=== PATIENT | male | born 1965 | race American Indian/Alaskan Native ===

== ENCOUNTER 2018-02-25 21:05 | Emergency (ER) | payer OTHER ==
[2018-02-25 21:31] VITALS: O2SAT 100
[2018-02-25] MEDS ORDERED: Aspirin 325 mg EC Tablets PO STA (22:12)
--- NOTE | 2018-02-25 22:12 | C.PDOC ---
History Of Present Illness Patient presents to ED complaining of a worsening intermittent dull aching epigastric and chest pain that has been occurring for the past month. Patient reports the discomfort goes from his stomach to his chest. His PCP prescribed him antacid medication that has given him partial relief, but the pain is still occasionally interfering with his daily routine. Denies fever, chills, change in bowel movement, nausea, vomiting. Time Seen by Provider: 02/25/18 22:11 Chief Complaint (Nursing): Chest Pain History Per: Patient History/Exam Limitations: no limitations Onset/Duration Of Symptoms: Days Current Symptoms Are (Timing): Still Present Severity: Mild Pain Scale Rating Of: 4 Quality: Dull, Aching Associated Symptoms: denies: Nausea Modifying Factors: None Exacerbating Factors: None Alleviating Factors: None Recent travel outside of the [place]: No Additional History Per: Patient Past Medical History Reviewed: Historical Data, Nursing Documentation, Vital Signs Vital Signs: Last Vital Signs Temp 97.9 F 02/25/18 21:29 Pulse 71 02/25/18 21:29 Resp 16 02/25/18 21:29 BP 133/83 02/25/18 21:29 Pulse Ox 100 02/25/18 22:37 - Medical History PMH: Gastritis Surgical History: No Surg Hx Family History: States: No Known Family Hx - Social History Hx Alcohol Use: No Hx Substance Use: No Review Of Systems Constitutional: Negative for: Fever, Chills Cardiovascular: Positive for: Chest Pain. Negative for: Palpitations Respiratory: Negative for: Shortness of Breath, Wheezing Gastrointestinal: Positive for: Abdominal Pain (mid epigastric). Negative for: Nausea, Vomiting Musculoskeletal: Negative for: Back Pain Skin: Negative for: Rash Neurological: Negative for: Weakness, Numbness Psych: Negative for: Anxiety Physical Exam - Physical Exam Appears: Non-toxic, No Acute Distress, Other (Speaking in full sentences.) Skin: Warm, Dry Head: Normacephalic Eye(s): bilateral: Normal Inspection Oral Mucosa: Moist Teeth: Other (poor dentition) Neck: Trachea Midline, Supple Chest: Symmetrical Cardiovascular: Rhythm Regular Respiratory: No Rales, No Rhonchi, No Wheezing Gastrointestinal/Abdominal: Bowel Sounds (tympanic to percussion), Tenderness, No Distention, No Guarding, No Rebound (mild mid epigastric) Back: Normal Inspection Extremity: Normal ROM Extremity: Bilateral: Atraumatic Neurological/Psych: Oriented x3 Gait: Steady ED Course And Treatment - Laboratory Results Result Diagrams: 02/25/18 22:20 02/25/18 22:20 ECG: Interpreted By Me, Viewed By Me ECG Rhythm: Sinus Rhythm (61), Nonspecific Changes O2 Sat by Pulse Oximetry: 100 (RA) Pulse Ox Interpretation: Normal Progress Note: EKG, chest X-ray, aspirin 325 PO, labs, urinalysis ordered. Medical Decision Making Medical Decision Making: I considered the following diagnoses: acute coronary syndrome, pulmonary embolism, lower respiratory infection, aortic dissection/aneurysm, pneumothorax , pericarditis, esophagitis/GERD, zoster and esophageal rupture but found them to be unlikely based on the history, physical exam, and diagnostics. My conclusions regarding the unlikely diagnoses were based on: the absence of significant EKG abnormalities, the lack of suggestive x-ray findings, the absence of significant abnormalities on cardiac monitoring, the absence of asymmetric pulses. Pt feels much better, cp free and wants to go home. Spoke at length about the need for follow up, smoking cessation and to return if symptoms recur Upon provider reevaluation patient is feeling better, is medically stable, and requires no further treatment in the ED at this time. Patient will be discharged home with Rx for protonix . Counseling was provided and all questions were answered regarding diagnosis and need for follow up with the referred clinic. There is agreement to discharge plan. Return if symptoms persist or worsen. Disposition Counseled Patient/Family Regarding: Studies Performed, Diagnosis, Need For Followup, Rx Given, Smoking Cessation - Disposition Referrals: [facility] [Outside] [facility] [Outside] Disposition: HOME/ ROUTINE Disposition Time: 22:11 Condition: FAIR Additional Instructions: Please return if symptoms recur Prescriptions: Pantoprazole Sodium [Protonix] 40 mg PO DAILY #15 ect Instructions: Acid Reflux (Gastroesophageal Reflux Disease) in Adults, Gastritis (DC), Ulcer and Gastritis Diet, Chest Pain (DC) Forms: [facility] (Marshallese) - Clinical Impression Clinical Impression: Chest pain, GERD (gastroesophageal reflux disease), Gastritis - Scribe Statement The provider has reviewed the documentation as recorded by the Terrance Garcia Patrick Provider Attestation: All medical record entries made by the Terrance were at my direction and personally dictated by me. I have reviewed the chart and agree that the record accurately reflects my personal performance of the history, physical exam, medical decision making, and the department course for this patient. I have also personally directed, reviewed, and agree with the discharge instructions and disposition.
[2018-02-25 22:23] LABS: BASO % 0.4 % (0.0-2.0); EOS # 0.1 K/uL (0.0-0.7); EOS % 1.4 % (0.0-4.0); HEMOGLOBIN 13.1 g/dL (12.0-18.0); LYMPH # 2.6 K/uL (1.0-4.3); LYMPH % 49.4 % (20.0-40.0); MEAN CELL VOLUME 93.4 fL (80.0-94.0); MEAN CORPUSCULAR HEMOGLOBIN 30.9 pg (27.0-31.0); MEAN PLATELET VOLUME 7.8 fL (7.2-11.7); MONO # 0.5 K/uL (0.0-0.8); MONO % 8.6 % (0.0-10.0); NEUT # 2.1 K/uL (1.8-7.0); NEUT % 40.2 % (50.0-75.0); NRBC % 0.2 % (0.0-2.0); RBC 4.23 Mil/uL (4.40-5.90); RED CELL DISTRIBUTION WIDTH 13.3 % (11.5-14.5); WHITE BLOOD COUNT 5.3 K/uL (4.8-10.8)
[2018-02-25] MEDS ORDERED: Aspirin 325 mg EC Tablets PO ONE (22:28)
[2018-02-25 22:40] LABS: ALB/GLOB RATIO 1.4 (1.0-2.1); ALBUMIN 4.4 g/dL (3.5-5.0); ALT/SGPT 32 U/L (21-72); AST/SGOT 26 U/L (17-59); BLOOD UREA NITROGEN 18 mg/dL (9-20); CALCIUM 9.5 mg/dl (8.6-10.4); GFR NON-AFRICAN AMERICAN > 60
[2018-02-25 22:53] LABS: INR 1.2; PROTHROMBIN TIME 13.3 SECONDS (9.7-12.2)
[2018-02-25 22:58] LABS: SQUAMOUS EPITHIAL 1 /hpf (0-5); URINE BACTERIA RARE (<OCC); URINE BILIRUBIN NEGATIVE (NEGATIVE); URINE BLOOD 2+ (NEGATIVE); URINE CLARITY Clear (Clear); URINE COLOR Yellow (YELLOW); URINE GLUCOSE (UA) NORMAL (Normal); URINE LEUKOCYTE ESTERASE NEG Leu/uL (Negative); URINE PROTEIN NEGATIVE (NEGATIVE)
[2018-02-26 00:03] VITALS: BP 121/75; PULSE 77; RESP 20; TEMP 98
--- NOTE | 2018-02-26 07:28 | RAD ---
HISTORY: cp COMPARISON: None TECHNIQUE: Chest PA and lateral FINDINGS: LUNGS: No focal consolidation is seen. PLEURA: No pleural effusion is identified. CARDIOVASCULAR: Heart size is within normal limits. OSSEOUS STRUCTURES: No acute fracture identified. VISUALIZED UPPER ABDOMEN: Unremarkable. OTHER FINDINGS: None. IMPRESSION: No acute cardiopulmonary process seen.
--- NOTE | 2018-02-26 14:55 | CARD ---
APPROVED REPORT Date of service: 02/25/2018 EKG Measurement Heart [id number] <Conclusion> Normal sinus rhythm Normal ECG
== END 2018-02-26 00:02 | disposition home or self-care (01) ==
LOC: C.ER 21:05
DX: R07.9 Chest pain, unspecified (principal); K21.9 Gastro-esophageal reflux disease without esophagitis; K29.70 Gastritis, unspecified, without bleeding

== ENCOUNTER 2018-09-30 17:19 | Inpatient (IN) | payer OTHER ==
[2018-09-30 18:03] LABS: BASO % 0.4 % (0.0-2.0); EOS # 0.1 K/uL (0.0-0.7); EOS % 1.1 % (0.0-4.0); LYMPH # 2.3 K/uL (1.0-4.3); LYMPH % 29.7 % (20.0-40.0); MEAN CELL VOLUME 94.1 fL (80.0-94.0); MEAN CORPUSCULAR HGB CONC 31.9 g/dL (33.0-37.0); MEAN PLATELET VOLUME 8.2 fL (7.2-11.7); MONO # 0.9 K/uL (0.0-0.8); MONO % 11.7 % (0.0-10.0); NEUT # 4.4 K/uL (1.8-7.0); NEUT % 57.1 % (50.0-75.0); RBC 4.67 Mil/uL (4.40-5.90); RED CELL DISTRIBUTION WIDTH 13.7 % (11.5-14.5); WHITE BLOOD COUNT 7.7 K/uL (4.8-10.8)
[2018-09-30] MEDS ORDERED: Sodium Chloride 0.9% 1,000 ML IV STA (18:04)
[2018-09-30] MEDS ORDERED: Sodium Chloride 0.9% 1,000 ML ONE ×2 (18:14→23:16)
[2018-09-30 18:15] LABS: ALB/GLOB RATIO 1.3 (1.0-2.1); ALBUMIN 4.3 g/dL (3.5-5.0); ALT/SGPT 18 U/L (21-72); AST/SGOT 22 U/L (17-59); BLOOD UREA NITROGEN 22 mg/dL (9-20); CALCIUM 9.4 mg/dl (8.6-10.4); GFR NON-AFRICAN AMERICAN > 60; LIPASE 93 U/L (23-300)
--- NOTE | 2018-09-30 18:21 | C.PDOC ---
History Of Present Illness 53 y/o male presents to the ED complaining of left-sided abdominal pain and left flank pain on and off since 4 days ago. Associated with nausea and multiple episodes of vomiting. Patients significant other thought he had tactile fever, no documented temp. No diarrhea, constipation, or changes in urination. No history of similar pain in the past. States he was seen here before for gastritis, and was given an unknown medication. Patient notes he took that same medication this time, with some improvement. On arrival to the ED, patient denies having any pain at present and no longer feels nauseous. Last episode of vomiting was just [employer], and the vomitus was brown-mary grace and non-bloody. He denies any chest pain, SOB, or dizziness. <Ez Meneses - Last Filed: 09/30/18 19:05> History Per: Patient History/Exam Limitations: no limitations Onset/Duration Of Symptoms: Intermittent Episodes Current Symptoms Are (Timing): Gone Associated Symptoms: Nausea, Vomiting <Ez Meneses - Last Filed: 09/30/18 19:05> <Zoila Lujan - Last Filed: 09/30/18 22:39> Time Seen by Provider: 09/30/18 17:54 Chief Complaint (Nursing): Abdominal Pain Past Medical History Reviewed: Historical Data, Nursing Documentation, Vital Signs Vital Signs: Last Vital Signs Temp 98.8 F 09/30/18 17:38 Pulse 88 09/30/18 17:38 Resp 20 09/30/18 17:38 BP 118/78 09/30/18 17:38 Pulse Ox 98 09/30/18 17:38 - Medical History PMH: Gastritis Surgical History: No Surg Hx Family History: States: No Known Family Hx - Social History Hx Tobacco Use: Yes Hx Alcohol Use: No Hx Substance Use: No - Immunization History Hx Tetanus Toxoid Vaccination: No Hx Influenza Vaccination: No Hx Pneumococcal Vaccination: No <Ez Meneses - Last Filed: 09/30/18 19:05> Vital Signs: Last Vital Signs Temp 99.0 F 09/30/18 20:56 Pulse 66 09/30/18 20:56 Resp 20 09/30/18 17:38 BP 156/86 H 09/30/18 20:56 Pulse Ox 98 09/30/18 20:56 <Zoila Lujan - Last Filed: 09/30/18 22:39> Review Of Systems Constitutional: Positive for: Fever (tactile). Negative for: Sweats, Weakness Cardiovascular: Negative for: Chest Pain Respiratory: Negative for: Shortness of Breath Gastrointestinal: Positive for: Nausea (none at present), Vomiting, Abdominal Pain (none at present). Negative for: Diarrhea, Constipation Musculoskeletal: Negative for: Back Pain Neurological: Negative for: Weakness, Dizziness <Ez Meneses - Last Filed: 09/30/18 19:05> Physical Exam - Physical Exam Appears: Well, Non-toxic, No Acute Distress Skin: Normal Color, Warm, No Rash Head: Normacephalic Eye(s): bilateral: Normal Inspection (no scleral icterus), PERRL, EOMI Oral Mucosa: Moist Neck: Normal ROM Chest: Symmetrical Cardiovascular: Rhythm Regular, No Murmur Respiratory: Normal Breath Sounds, No Accessory Muscle Use, Other (Normal inspiratory effort) Gastrointestinal/Abdominal: Bowel Sounds (normoactive), Soft, No Tenderness, No Distention Back: No CVA Tenderness, No Vertebral Tenderness Extremity: Bilateral: Atraumatic, Normal Color And Temperature, Normal ROM Neurological/Psych: Oriented x3, Normal Cranial Nerves Gait: Steady <Ez Meneses - Last Filed: 09/30/18 19:05> ED Course And Treatment - Laboratory Results Result Diagrams: 09/30/18 18:00 09/30/18 18:00 Lab Results: Total Bilirubin 0.7 mg/dL (0.2-1.3) 09/30/18 18:00 AST 22 U/L (17-59) 09/30/18 18:00 ALT 18 U/L (21-72) L D 09/30/18 18:00 Alkaline Phosphatase 65 U/L (38-126) 09/30/18 18:00 Total Protein 7.6 g/dL (6.3-8.3) 09/30/18 18:00 Albumin 4.3 g/dL (3.5-5.0) 09/30/18 18:00 Globulin 3.3 gm/dL (2.2-3.9) 09/30/18 18:00 Albumin/Globulin Ratio 1.3 (1.0-2.1) 09/30/18 18:00 Lipase 93 U/L (23-300) 09/30/18 18:00 O2 Sat by Pulse Oximetry: 98 (RA) Pulse Ox Interpretation: Normal <Ez Meneses - Last Filed: 09/30/18 19:05> - Laboratory Results Result Diagrams: 09/30/18 18:00 09/30/18 18:00 Lab Results: Total Bilirubin 0.7 mg/dL (0.2-1.3) 09/30/18 18:00 AST 22 U/L (17-59) 09/30/18 18:00 ALT 18 U/L (21-72) L D 09/30/18 18:00 Alkaline Phosphatase 65 U/L (38-126) 09/30/18 18:00 Total Protein 7.6 g/dL (6.3-8.3) 09/30/18 18:00 Albumin 4.3 g/dL (3.5-5.0) 09/30/18 18:00 Globulin 3.3 gm/dL (2.2-3.9) 09/30/18 18:00 Albumin/Globulin Ratio 1.3 (1.0-2.1) 09/30/18 18:00 Lipase 93 U/L (23-300) 09/30/18 18:00 Urine Color Yellow (YELLOW) 09/30/18 19:13 Urine Clarity Clear (Clear) 09/30/18 19:13 Urine pH 5.0 (5.0-8.0) 09/30/18 19:13 Ur Specific [place] 1.031 (1.003-1.030) H 09/30/18 19:13 Urine Protein 1+ mg/dL (NEGATIVE) H 09/30/18 19:13 Urine Glucose (UA) Normal mg/dL (Normal) 09/30/18 19:13 Urine Ketones Negative mg/dL (NEGATIVE) 09/30/18 19:13 Urine Blood 1+ (NEGATIVE) H 09/30/18 19:13 Urine Nitrate Negative (NEGATIVE) 09/30/18 19:13 Urine Bilirubin Negative (NEGATIVE) 09/30/18 19:13 Urine Urobilinogen 4.0 mg/dL (0.2-1.0) 09/30/18 19:13 Ur Leukocyte Esterase Neg Lindsey/uL (Negative) 09/30/18 19:13 Urine WBC (Auto) 2 /hpf (0-5) 09/30/18 19:13 Urine RBC (Auto) 9 /hpf (0-3) H 09/30/18 19:13 Ur Squamous Epith Cells 4 /hpf (0-5) 09/30/18 19:13 <Zoila Lujan - Last Filed: 09/30/18 22:39> Medical Decision Making Medical Decision Making: Impression: Abdominal pain, Vomiting Plan: - Basic blood work, lipase, and UA pending - Patient given NS IV fluids <ZairaEz - Last Filed: 09/30/18 19:05> Disposition <ZairaEz Last Filed: 09/30/18 19:05> Discussed With DrBrody: Ronnie Fraga Comment: accepted the pt on his service and took over the care at 10:37 PM Doctor Will See Patient In The: Hospital Counseled Patient/Family Regarding: Studies Performed, Diagnosis - Disposition Disposition Time: 19:00 <Zoila Lujan - Last Filed: 09/30/18 22:39> - Disposition Disposition: HOSPITALIZED Condition: FAIR Forms: [employer] (Guyanese) - Clinical Impression Clinical Impression: Renal colic on left side, Kidney stone on left side, Hydronephrosis concurrent with and due to calculi of kidney and ureter - PA / TRAVELING ENGINEER / Resident Statement MD/DO has reviewed & agrees with the documentation as recorded. - Scribe Statement The provider has reviewed the documentation as recorded by the Scribyg Garcia All medical record entries made by the Jorgeibyg were at my direction and personally dictated by me. I have reviewed the chart and agree that the record accurately reflects my personal performance of the history, physical exam, medical decision making, and the department course for this patient. I have also personally directed, reviewed, and agree with the discharge instructions and disposition. <ZairaEz - Last Filed: 09/30/18 19:05> Physician Patient Turnover Patient Signed Over To: Zoila Lujan Handoff Comments: check labs <ZairaEz Last Filed: 09/30/18 19:05> Decision To Admit <Bertjuan antonioEz Filed: 09/30/18 19:05> - Pt Status Changed To: Hospital Disposition Of: Inpatient - Admit Certification Admit to Inpatient:: After my assessment, the patient will require hospitalization for at least two midnights. This is because of the severity of symptoms shown, intensity of services needed, and/or the medical risk in this patient being treated as an outpatient. - InPatient: Physician Admission Certification:: After my assessment, the patient will require hospitalization for at least two midnights. This is because of the severity of symptoms shown, intensity of services needed, and/or the medical risk in this patient being treated as an outpatient. - . Bed Request Type: Regular Admitting Physician: Ronnie Fraga <Zoila Lujan - Last Filed: 09/30/18 22:39> - . Patient Diagnosis: Renal colic on left side, Kidney stone on left side, Hydronephrosis concurrent with and due to calculi of kidney and ureter
[2018-09-30 19:21] LABS: SQUAMOUS EPITHIAL 4 /hpf (0-5); URINE BILIRUBIN NEGATIVE (NEGATIVE); URINE BLOOD 1+ (NEGATIVE); URINE CLARITY Clear (Clear); URINE COLOR Yellow (YELLOW); URINE GLUCOSE (UA) NORMAL (Normal); URINE LEUKOCYTE ESTERASE NEG Leu/uL (Negative); URINE PROTEIN 1+ mg/dL (NEGATIVE)
[2018-09-30] MEDS ORDERED: Iodixanol 320 MG/ML 100 ML BOTTLE IV ONE (20:03)
[2018-09-30] MEDS ORDERED: Sodium Chloride 0.9% 2,000 ML IV ONE (22:36)
[2018-10-01] MEDS: Sodium Chloride 0.9% 1,000 ML IV SCH ×3 (00:55→20:00)
--- NOTE | 2018-10-01 09:35 | CT ---
Date of service: 09/30/2018 PROCEDURE: CT Abdomen and Pelvis with intravenous contrast HISTORY: Abdominal pain COMPARISON: None. TECHNIQUE: Multiple contiguous axial images were performed through the abdomen and pelvis with the use of intravenous contrast. Subsequently, sagittal and coronal reformatted images were obtained. This CT exam was performed using one or more of the following dose reduction techniques: Automated exposure control, adjustment of the mA and/or kV according to patient size, and/or use of iterative reconstruction technique. Radiation dose: Total exam DLP = 554.32 mGy-cm. This CT exam was performed using one or more of the following dose reduction techniques: Automated exposure control, adjustment of the mA and/or kV according to patient size, and/or use of iterative reconstruction technique. FINDINGS: LOWER THORAX: 2 millimeter nodular density within the medial right middle lobe. Atelectasis at the left lung base. LIVER: 1.4 centimeter lobulated low-attenuation lesion seen within the right hepatic lobe demonstrating a Hounsfield unit attenuation of 20, indeterminate. Additional lobulated low-attenuation lesion seen within the caudate lobe measuring 2.2 centimeters demonstrating a Hounsfield unit attenuation of 18, indeterminate. Multiple scattered sub centimeter hypoattenuated foci throughout the liver too small to adequately characterize. Mild intrahepatic biliary the ductal dilatation. GALLBLADDER AND BILE DUCTS: Unremarkable. PANCREAS: Mild prominence of the main pancreatic duct measuring up to 3 millimeters. SPLEEN: Unremarkable. ADRENALS: Unremarkable. No mass. KIDNEYS AND URETERS: Right kidney: Multiple prominent calculi for example in the midpole measuring 9 millimeters and in the lower pole measuring up to 8.2 and 8 millimeters. 5 millimeter hypodensity in the upper pole of the right kidney, too small to adequately characterize. No gross right renal hydronephrosis. Left Kidney: Moderate left hydroureteronephrosis with an obstructing calculus in the mid left ureter measuring 6 millimeters. VASCULATURE: Unremarkable. No aortic aneurysm. Aortic atherosclerotic calcification or mural plaque present. BOWEL: Gastric distension with mild thickening of the distal esophagus. Redundant and somewhat underdistended colon limits evaluation. Correlation with colonoscopy may be helpful if clinically indicated. Fecal retention in the colon. APPENDIX: Unremarkable. Normal appendix. PERITONEUM: Unremarkable. No free fluid. No free air. LYMPH NODES: Few shotty para-aortic and inguinal lymph nodes. Few shotty mesenteric lymph nodes. BLADDER: Thick-walled urinary bladder. REPRODUCTIVE: Unremarkable. Bilateral scrotal hydroceles. BONES: Degenerative changes in the spine with retrolisthesis of L5 on S1 and prominent endplate sclerotic changes noted at the L5-S1 level. OTHER FINDINGS: None. IMPRESSION: Moderate left hydroureteronephrosis with an obstructing calculus in the mid left ureter measuring 6 millimeters. Multiple nonobstructive right renal calculi. Retrolisthesis of L5 on S1 with degenerative changes as described above in the spine. Thick-walled urinary bladder which may represent an underlying cystitis. Clinical correlation. Gastric distention with mild thickening of the distal esophagus. Clinical correlation. Multiple low-attenuation lesions throughout the liver as described above. Correlation with multiphasic contrast enhanced CT or MR may be helpful for further evaluation if clinically indicated. 2 millimeter nodule within the right middle lobe of the lung. Redundant and somewhat underdistended colon limits evaluation. Correlation with colonoscopy may be helpful if clinically indicated. A preliminary report was generated at 10:14 p.m. on 09/30/[address] Ez Mary from [employer].
[2018-10-01] MEDS: Enoxaparin 40 mg Syringe SC SCH (09:42)
[2018-10-01] MEDS: Potassium Chloride 20 mEq ER Tab PO ONE ×2 (10:42→11:21)
[2018-10-01] MEDS ORDERED: Potassium Chloride 20 mEq ER Tab PO ONE (11:15)
[2018-10-01 11:38] LABS: BLOOD UREA NITROGEN 19 mg/dL (9-20); CALCIUM 8.3 mg/dl (8.6-10.4); GFR NON-AFRICAN AMERICAN 58
--- NOTE | 2018-10-01 22:30 | CP.PCM.HP ---
Present on Admission - Present on Admission Any Indicators Present on Admission: No Past Patient History - Past Medical History & Family History Past Medical History?: Yes - Past Social History Smoking Status: Former Smoker - MUSCULOSKELETAL/RHEUMATOLOGICAL Hx Falls: No - GASTROINTESTINAL Hx Gastritis: Yes - PSYCHIATRIC Hx Substance Use: No - SURGICAL HISTORY Hx Surgeries: No Meds Allergies/Adverse Reactions: Allergies Allergy/AdvReac Type Severity Reaction Status Date / Time No Known Allergies Allergy Verified 09/30/18 17:40 Results - Vital Signs Recent Vital Signs: Last Vital Signs Temp 97.8 F 10/01/18 16:00 Pulse 63 10/01/18 16:00 Resp 20 10/01/18 16:00 BP 120/78 10/01/18 16:00 Pulse Ox 99 10/01/18 16:00 - Labs Result Diagrams: 09/30/18 18:00 10/01/18 11:13 Labs: Laboratory Results - last 24 hr 10/01/18 11:13 Sodium 136 Potassium 3.4 L Chloride 101 Carbon Dioxide 33 H Anion Gap 5 L BUN 19 Creatinine 1.3 Est GFR ( Amer) > 60 Est GFR (Non-Af Amer) 58 Random Glucose 139 H D Calcium 8.3 L
[2018-10-02] MEDS: Sodium Chloride 0.9% 1,000 ML IV SCH ×3 (03:11→09:20)
--- NOTE | 2018-10-02 06:28 | HP ---
CHIEF COMPLAINT: Left upper quadrant abdominal pain radiating to the left flank. HISTORY OF PRESENT ILLNESS: This is a 53-year-old male with history of smoking and social alcohol user who does not have any significant past medical history. For the last four days, he is having left upper quadrant abdominal pain radiating to the left flank and left groin area, which is colicky in nature, sharp, severe associated with nausea and multiple episodes of vomiting. He also feels feverish. He has no dysuria, hematuria, pyuria. He denies any diarrhea, constipation. He denies any history of change in urinary stream. He denies any urgency, hesitancy, nocturia. The patient has a history of similar pain in the past and the patient was told that he has gastritis and he was given some medication and he did well with medication. The patient denies any pain, but when he arrived in the ER his pain was intense 9/10. He denies any history of joint pain, hip pain. He denied any tingling, numbness, paresthesias of the feet. He denies any sneezing, itchy eyes, itchy nose. He denies any polyuria, polydipsia, polyphagia. PAST MEDICAL HISTORY: Nothing significant. PAST SURGICAL HISTORY: He smokes. He drinks. FAMILY HISTORY: Negative for kidney stone. PHYSICAL EXAMINATION: GENERAL: An adult middle-aged male in no distress. VITAL SIGNS: Blood pressure 120/78, pulse 63, respiratory rate 20, temperature 97.8. SKIN: No rashes. No bruises. No purpura. No petechiae. No ecchymosis. HEENT: Atraumatic and normocephalic. Negative pallor. Negative jaundice. Extraocular movements are intact. NECK: Supple. No JVD. No lymph node. No thyromegaly. No carotic bruit. CHEST: Chest wall, bilateral symmetrical expansion. LUNGS: Clear. No rales. No rhonchi. CARDIOVASCULAR SYSTEM: S1 and S2. Regular. No heave, no thrill. CENTRAL NERVOUS SYSTEM: Awake, alert, and oriented x3. Cranial nerves II through XII are normal. Power 5/5 x4. Plantars are downgoing. ASSESSMENT: 1. Renal colic, rule out gastritis. 2. Dehydration. PLAN: Admit. Detailed orders are written. Seen and examined. Ronnie Fraga MD [facility] # [id number]
[2018-10-02 07:14] LABS: BASO % 0.7 % (0.0-2.0); EOS # 0.1 K/uL (0.0-0.7); EOS % 1.2 % (0.0-4.0); LYMPH # 1.7 K/uL (1.0-4.3); LYMPH % 33.7 % (20.0-40.0); MEAN CELL VOLUME 93.3 fL (80.0-94.0); MEAN CORPUSCULAR HEMOGLOBIN 30.6 pg (27.0-31.0); MEAN CORPUSCULAR HGB CONC 32.8 g/dL (33.0-37.0); MEAN PLATELET VOLUME 8.5 fL (7.2-11.7); MONO # 0.4 K/uL (0.0-0.8); MONO % 8.4 % (0.0-10.0); NEUT # 2.8 K/uL (1.8-7.0); RBC 3.56 Mil/uL (4.40-5.90); RED CELL DISTRIBUTION WIDTH 13.5 % (11.5-14.5)
[2018-10-02 07:23] LABS: PROTHROMBIN TIME 12.9 SECONDS (9.7-12.2)
[2018-10-02 07:24] LABS: INR 1.2
[2018-10-02 07:35] LABS: HEMOGLOBIN 10.9 g/dL (12.0-18.0)
[2018-10-02 08:02] LABS: BLOOD UREA NITROGEN 17 mg/dL (9-20); CALCIUM 8.3 mg/dl (8.6-10.4); GFR NON-AFRICAN AMERICAN > 60
[2018-10-02] MEDS: Enoxaparin 40 mg Syringe SC SCH (10:36)
[2018-10-02 10:43] VITALS: BP 148/88; PULSE 59; RESP 20; TEMP 98.2; O2SAT 99
--- NOTE | 2018-10-02 13:38 | CP.PCM.PN ---
Subjective - Date & Time of Evaluation Date of Evaluation: 10/02/18 Time of Evaluation: 13:38 - Subjective Subjective: PATIENT SEEN AND EXAMINED AT THE BEDSIDE Objective - Vital Signs/Intake and Output Vital Signs (last 24 hours): Temp Pulse Resp BP Pulse Ox 98.2 F 59 L 20 148/88 99 10/02/18 08:00 10/02/18 08:00 10/02/18 08:00 10/02/18 08:00 10/02/18 08:00 Intake and Output: 10/02/18 10/02/18 06:59 18:59 Intake Total 1200 Output Total 800 Balance 400 - Medications Medications: Current Medications Enoxaparin Sodium (Lovenox) 40 mg SC DAILY [facility] Last Admin: 10/02/18 10:36 Dose: 40 mg Sodium Chloride (Sodium Chloride 0.9%) 1,000 mls @ 150 mls/hr IV .Q6H40M [facility]IAN[facility] Last Admin: 10/02/18 09:20 Dose: Not Given Ceftriaxone Sodium 1 gm/ (Sodium Chloride) 100 mls @ 100 mls/hr IVPB DAILY [facility]IAN[facility]; Protocol Last Admin: 10/02/18 09:14 Dose: 100 mls/hr Ketorolac Tromethamine (Toradol) 30 mg IVP Q6H PRN PRN Reason: Pain, severe (8-10) Last Admin: 10/01/18 17:18 Dose: 30 mg Ondansetron HCl (Zofran Inj) 4 mg IVP Q6 PRN PRN Reason: Nausea/Vomiting Pneumococcal Polyvalent Vaccine (Pneumovax 23 Vaccine) 0.5 ml IM .ONCE ONE Stop: 10/03/18 14:01 - Labs Labs: 10/02/18 07:03 10/02/18 07:03 PT 12.9 SECONDS (9.7-12.2) H 10/02/18 07:03 INR 1.2 10/02/18 07:03 APTT 31 SECONDS (21-34) 10/02/18 07:03 Assessment and Plan - Assessment and Plan (Free Text) Assessment: FOLLOW UP WITH DR MCCOLLUM IN HIS OFFICE ----CALL FOR APPOINTMENT FOLLOW UP WITH DR NASH IN HIS OFFICE -----CALL FOR APPOINTMENT CONTINUE HOME MEDICATION NEW PRESCRIPTION GIVEN FLOMAX 0.4 MG PO DAILY PERCOCET 1 TAB PO EVERY 6 HOURS FOR PAIN FOR 4 DAYS ACTIVITY TOLERATED STRAIN YOUR URINE PER DR NASH CALL DR MCCOLLUM OR GO TO THE EMERGENCY ROOM IF SYMPTOM RETURN OR WORSENING
--- NOTE | 2018-10-02 21:24 | CP.PCM.DIS ---
Provider - Provider Date of Admission: 09/30/18 22:35 Attending physician: Ronnie Fraga MD Consults: 09/30/18 22:48 Urology Consult Routine Comment: Consulting Provider: Luz Elena Nash Consulting Physician: Luz Elena Nash Reason for Consult: Renal calculi Time Spent in preparation of Discharge (in minutes): 30 Hospital Course - Lab Results Lab Results: Most Recent Lab Values WBC 5.0 K/uL (4.8-10.8) 10/02/18 07:03 RBC 3.56 Mil/uL (4.40-5.90) L 10/02/18 07:03 Hgb 10.9 g/dL (12.0-18.0) L D 10/02/18 07:03 Hct 33.2 % (35.0-51.0) L 10/02/18 07:03 MCV 93.3 fL (80.0-94.0) 10/02/18 07:03 MCH 30.6 pg (27.0-31.0) 10/02/18 07:03 MCHC 32.8 g/dL (33.0-37.0) L 10/02/18 07:03 RDW 13.5 % (11.5-14.5) 10/02/18 07:03 Plt Count 183 K/uL (130-400) 10/02/18 07:03 MPV 8.5 fL (7.2-11.7) 10/02/18 07:03 Neut % (Auto) 56.0 % (50.0-75.0) 10/02/18 07:03 Lymph % (Auto) 33.7 % (20.0-40.0) 10/02/18 07:03 [place] % (Auto) 8.4 % (0.0-10.0) 10/02/18 07:03 Eos % (Auto) 1.2 % (0.0-4.0) 10/02/18 07:03 Baso % (Auto) 0.7 % (0.0-2.0) 10/02/18 07:03 Neut # (Auto) 2.8 K/uL (1.8-7.0) 10/02/18 07:03 Lymph # (Auto) 1.7 K/uL (1.0-4.3) 10/02/18 07:03 [place] # (Auto) 0.4 K/uL (0.0-0.8) 10/02/18 07:03 Eos # (Auto) 0.1 K/uL (0.0-0.7) 10/02/18 07:03 Baso # (Auto) 0.0 K/uL (0.0-0.2) 10/02/18 07:03 PT 12.9 SECONDS (9.7-12.2) H 10/02/18 07:03 INR 1.2 10/02/18 07:03 APTT 31 SECONDS (21-34) 10/02/18 07:03 Sodium 138 mmol/L (132-148) 10/02/18 07:03 Potassium 3.8 mmol/L (3.6-5.2) 10/02/18 07:03 Chloride 106 mmol/L (98-107) 10/02/18 07:03 Carbon Dioxide 27 mmol/L (22-30) 10/02/18 07:03 Anion Gap 9 (10-20) L 10/02/18 07:03 BUN 17 mg/dL (9-20) 10/02/18 07:03 Creatinine 1.1 mg/dL (0.8-1.5) 10/02/18 07:03 Est GFR ( Amer) > 60 10/02/18 07:03 Est GFR (Non-Af Amer) > 60 10/02/18 07:03 Random Glucose 95 mg/dL (75-110) D 10/02/18 07:03 Calcium 8.3 mg/dl (8.6-10.4) L 10/02/18 07:03 Total Bilirubin 0.7 mg/dL (0.2-1.3) 09/30/18 18:00 AST 22 U/L (17-59) 09/30/18 18:00 ALT 18 U/L (21-72) L D 09/30/18 18:00 Alkaline Phosphatase 65 U/L (38-126) 09/30/18 18:00 Total Protein 7.6 g/dL (6.3-8.3) 09/30/18 18:00 Albumin 4.3 g/dL (3.5-5.0) 09/30/18 18:00 Globulin 3.3 gm/dL (2.2-3.9) 09/30/18 18:00 Albumin/Globulin Ratio 1.3 (1.0-2.1) 09/30/18 18:00 Lipase 93 U/L (23-300) 09/30/18 18:00 Urine Color Yellow (YELLOW) 09/30/18 19:13 Urine Clarity Clear (Clear) 09/30/18 19:13 Urine pH 5.0 (5.0-8.0) 09/30/18 19:13 Ur Specific [place] 1.031 (1.003-1.030) H 09/30/18 19:13 Urine Protein 1+ mg/dL (NEGATIVE) H 09/30/18 19:13 Urine Glucose (UA) Normal mg/dL (Normal) 09/30/18 19:13 Urine Ketones Negative mg/dL (NEGATIVE) 09/30/18 19:13 Urine Blood 1+ (NEGATIVE) H 09/30/18 19:13 Urine Nitrate Negative (NEGATIVE) 09/30/18 19:13 Urine Bilirubin Negative (NEGATIVE) 09/30/18 19:13 Urine Urobilinogen 4.0 mg/dL (0.2-1.0) 09/30/18 19:13 Ur Leukocyte Esterase Neg [place]/uL (Negative) 09/30/18 19:13 Urine WBC (Auto) 2 /hpf (0-5) 09/30/18 19:13 Urine RBC (Auto) 9 /hpf (0-3) H 09/30/18 19:13 Ur Squamous Epith Cells 4 /hpf (0-5) 09/30/18 19:13 Discharge Plan - Discharge Medications Prescriptions: Tamsulosin [Flomax] 0.4 mg PO DAILY 30 Days cap oxyCODONE/Acetaminophen [Percocet 5/325 mg Tab] 1 ea PO Q6H #16 tab - Follow Up Plan Condition: FAIR Disposition: HOME/ ROUTINE Instructions: Kidney Stones (DC), Renal Colic (DC), Oxycodone and Acetaminophen, Tamsulosin, How to Strain Your Urine, Kidney Stone Diet Additional Instructions: FOLLOW UP WITH DR FRAGA IN HIS OFFICE ----CALL FOR APPOINTMENT FOLLOW UP WITH DR NASH IN HIS OFFICE -----CALL FOR APPOINTMENT CONTINUE HOME MEDICATION NEW PRESCRIPTION GIVEN FLOMAX 0.4 MG PO DAILY PERCOCET 1 TAB PO EVERY 6 HOURS FOR PAIN FOR 4 DAYS ACTIVITY TOLERATED STRAIN YOUR URINE PER DR NASH CALL DR FRAGA OR GO TO THE EMERGENCY ROOM IF SYMPTOM RETURN OR WORSENING Referrals: Ronnie Fraga MD [Staff Provider] - Luz Elena Nash MD [Staff Provider] -
--- NOTE | 2018-10-02 23:31 | CON ---
DATE: 10/02/2018 HISTORY OF PRESENT ILLNESS: The patient is a 53-year-old male who came to the emergency room and has abdominal pain. CT scan of the abdomen and pelvis revealed a 5-mm stone in the left ureter. The stone is all the way down to the pelvic area with mild hydronephrosis. The patient also has some stones on the left kidney. After stopping IV, giving pain medicine today after 1 day, the patient improved, has no pain, little discomfort in the left lower quadrant. No gross hematuria. PHYSICAL EXAMINATION: ABDOMEN: Reveals soft. No flank tenderness. No kidney palpable. No suprapubic fullness. Mild left lower quadrant tenderness. IMPRESSION: Left ureteral stone, around 5 mm, palpable. PLAN: Flomax. Pain killer. Force fluid. Discharge the patient and follow up. Luz Elena Orellana MD
[2018-10-03] MEDS ORDERED: Pneumococcal 23-Valent Vaccine IM ONE (14:00)
== END 2018-10-02 14:37 | disposition home or self-care (01) | DRG 465 ==
LOC: C.ER 17:19 → C.9E 22:35 → C.5S 23:29
PROVIDERS: ADMIT Internal Medicine; ATTEND Internal Medicine
DX: N13.2 Hydronephrosis with renal and ureteral calculous obstruction (principal); E86.0 Dehydration; K29.70 Gastritis, unspecified, without bleeding; Z87.891 Personal history of nicotine dependence